=== PATIENT | male | born 1985 | race African-American/Black ===

== ENCOUNTER 2023-08-20 20:11 | Emergency (ER) | payer SELFPAY ==
[2023-08-20 21:22] LABS: BASOPHILS ABSOLUTE AUTO 0.1 x10-3/uL (0.0-0.3); EOSINOPHILS ABSOLUTE AUTO 0.2 x10-3/uL (0.0-0.6); HEMOGLOBIN 12.2 g/dL (12.9-17.7); LYMPHOCYTES ABSOLUTE AUTO 1.8 x10-3/uL (0.5-4.5); MONOCYTES ABSOLUTE AUTO 0.8 x10-3/uL (0.0-1.2); RED BLOOD CELL COUNT 4.06 x10(6)uL (3.90-5.90); WHITE BLOOD CELL COUNT,WBC 8.2 x10-3/uL (3.2-10.1)
[2023-08-20 21:24] LABS: BLOOD UREA NITROGEN,BUN 13 mg/dL (7-18); BUN/CREATININE RATIO 10.8 (9-20); CALCIUM 8.7 mg/dL (8.6-10.2); CARBON DIOXIDE,CO2 26 mmol/L (21-32); CHLORIDE,CL 103 mmol/L (100-110); CREATININE 1.2 mg/dL (0.70-1.30); EST CRCL DRUG DOSING (CG) 92.82 mL/min; ESTIMATED GFR 80 mL/min (>60); GLUCOSE RANDOM 126 mg/dL (80-116); POTASSIUM,K 3.3 mmol/L (3.5-5.3); SODIUM,NA 141 mmol/L (135-145)
[2023-08-20 21:28] LABS: BASOPHILS PERCENT AUTO 0.8 % (0.3-3.8); EOSINOPHILS PERCENT AUTO 2.2 % (0.1-6.8); HEMATOCRIT 37.2 % (38.3-50.1); LYMPHOCYTES PERCENT AUTO 21.8 % (15.8-45.3); MEAN CORPUSCULAR HGB CONC 32.7 g/dL (28.7-35.3); MEAN CORPUSCULAR VOLUME 91.7 fL (80.8-98.7); MEAN PLATELET VOLUME 9.4 fL (6.7-11.0); MONOCYTES PERCENT AUTO 9.9 % (5.5-15.2); NEUTROPHILS ABSOLUTE AUTO 5.3 x10-3/uL (1.7-6.9); NEUTROPHILS PERCENT AUTO 65.3 % (40.3-71.8); PLATELET COUNT,PLT 311 x10(3)uL (117-477); RED CELL DISTRIBUTION WIDTH 13.7 % (12.4-15.0)
[2023-08-20 21:29] LABS: A/G RATIO 0.7; ALANINE AMINOTRANSFERASE,ALT 18 U/L (12-36); ALBUMIN 3.8 g/dL (3.5-5.2); ALKALINE PHOSPHATASE 113 IU/L (56-112); ASPARTATE AMNIOTRANSFERASE,AST 13 IU/L (5-25); BILIRUBIN TOTAL 0.5 mg/dL (0.1-1.3); PROTEIN TOTAL,TP 9.3 g/dL (6.0-8.0)
[2023-08-22 16:36] LABS: HEPATITIS B SURFACE ANTIGEN Negative (Negative)
[2023-08-22 19:04] LABS: HEPATITIS C AB CIA INTERP Negative (Negative); HEPATITIS C ANTIBODY CIA INDEX 0.35 IV
[2023-08-22 20:42] LABS: HIV 1,2 COMBO ANTIGEN/ANTIBODY Negative (Negative)
[2023-08-23 01:46] LABS: RAPID PLASMA REAGIN (RPR) Reactive (Non Reactive)
[2023-08-23 04:07] LABS: HSV TYPE 1/2 COMBINED AB, IGG >22.40 IV
[2023-08-23 15:23] LABS: APTIMA MEDIA TYPE Urine; C. TRACHOMATIS BY TMA Negative (Negative); N. GONORRHOEAE BY TMA Negative (Negative); SPECIMEN SOURCE Urine
== END 2023-08-20 21:35 | disposition home or self-care (01) ==
LOC: FB.ED 20:11
DX: A63.0 Anogenital (venereal) warts (principal); Z88.0 Allergy status to penicillin
CPT/HCPCS: 80053; 85025; 86038; 86140; 86592; 86694; 86803; 87340; 87389; 87491; 87591; 99283